=== PATIENT | female | born 1955 | race Caucasian/White ===

== ENCOUNTER → 2016-11-05 | Outpatient (REF) | payer BC, OTHER | LOC: M LABNEURO 16:46 | PROVIDERS: ATTEND Psychiatry & Neurology Neurology | DX: R53.83 Other fatigue (principal) ==

== ENCOUNTER → 2017-02-04 | Outpatient (REF) ==
[2017-02-04 06:56] LABS: MEAN CORPUSCULAR HEMOGLOBIN 30.1 pg (27.0-33.0); MEAN CORPUSCULAR HGB CONC 33.4 g/dl (32.0-36.5); PLATELET COUNT, AUTOMATED 272 10^3/uL (150-450); RED CELL DISTRIBUTION WIDTH 11.7 % (11.5-14.5); WHITE BLOOD COUNT 5.3 10^3/uL (4.0-10.0)
[2017-02-04 07:15] LABS: ANION GAP 5 MEQ/L (8-16); BLOOD UREA NITROGEN 20 MG/DL (7-18); CARBON DIOXIDE LEVEL 31 MEQ/L (21-32); CHLORIDE LEVEL 107 MEQ/L (98-107); CHOLESTEROL LEVEL 186 MG/DL (<200); CREATININE FOR GFR 0.75 MG/DL (0.55-1.02); GLOMERULAR FILTRATION RATE > 60.0 (>45); GLUCOSE, FASTING 96 MG/DL (80-110); POTASSIUM SERUM 4.1 MEQ/L (3.5-5.1); SODIUM LEVEL 143 MEQ/L (136-145); TRIGLYCERIDES LEVEL 95 MG/DL (<150)
--- NOTE | 2017-02-04 08:42 | ECGEPIP ---
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 Similar to 12/30/13. Electronically Signed On 02-04-2017 8:42:17 EST by Chadd Montalvo
== END ==
LOC: M LAB 06:15
PROVIDERS: ATTEND Family Medicine
DX: Z02.89 Encounter for other administrative examinations (principal)

== ENCOUNTER → 2017-02-19 | Outpatient (CLI) | payer BC ==
--- NOTE | 2017-02-22 20:45 | HOLTMON ---
[facility] Test Date: 2017-02-19 Pat Name: EMMANUELLE OLIVER Department: Room: - Gender: Female Clinical Assoc: VIELKA MENDO[facility] : 1955 Requested By: JAIMIE JONES Order Number: [id number] Reading MD: Moshe Tinajero Interpretive Statements Patient had 47.5 hour holter monitor, with minimal artifact. Underlying rhythm was sinus. Minimum heart rate was 58 bpm, maximum was 159 bpm. There were no significant pauses. There were 6 ventricular singlet beats, and 28 supraventricular singlet beats recorded, with no runs. Diary events were not associated with arrhythmia. There was no diary event associated with her maximum heart rate. The cause for her palpitations is not identified by this study. An event recorder can be considered for longer term monitoring if palpitations are not frequent. An implantable loop recorder could also be considered depending on clinical scenario. Thank-you for this referral. Electronically Signed On 02-22-2017 20:44:52 EST by Moshe Tinajero
== END ==
LOC: M EKG 06:23
PROVIDERS: ATTEND Family Medicine
DX: R00.2 Palpitations (principal)

== ENCOUNTER → 2017-05-29 | Outpatient (CLI) | payer OTHER ==
[2017-05-29 10:48] LABS: TOTAL 25(OH) VITAMIN D 43.8 NG/ML (30.0-100.0)
== END ==
LOC: M LAB 09:12
DX: Z13.21 Encounter for screening for nutritional disorder (principal)
CPT/HCPCS: 82306

== ENCOUNTER → 2020-05-01 | Outpatient (CLI) | payer SELFPAY | LOC: M LABSMTC 11:34 | PROVIDERS: ATTEND Pediatrics | DX: Z11.52 Encounter for screening for COVID-19 (principal) ==

== ENCOUNTER → 2021-04-25 | Outpatient (CLI) | payer MEDICARE | LOC: M PLAIMG 10:01 | PROVIDERS: ATTEND Family Medicine | DX: M67.441 Ganglion, right hand (principal) ==

== ENCOUNTER → 2021-08-23 | Outpatient (CLI) | payer MEDICARE | LOC: M PLALAB 09:47 | PROVIDERS: ATTEND Family Medicine | DX: M75.31 Calcific tendinitis of right shoulder (principal); M25.552 Pain in left hip; M25.551 Pain in right hip ==

== ENCOUNTER → 2021-08-24 | Outpatient (CLI) | payer MEDICARE | LOC: M PLAIMG 09:30 | PROVIDERS: ATTEND Family Medicine | DX: M25.552 Pain in left hip (principal); M25.512 Pain in left shoulder; M25.551 Pain in right hip ==

== ENCOUNTER → 2023-05-27 | Outpatient (CLI) | payer MEDICARE | LOC: M PLAIMG 09:05 | PROVIDERS: ATTEND Family Medicine | DX: M54.2 Cervicalgia (principal); M79.672 Pain in left foot ==

== ENCOUNTER 2023-07-15 16:48 | Emergency (ER) | payer MEDICARE ==
[~2023-07-15] VITALS: Ht 167.6 cm; Wt 65.2 kg
[2023-07-15 16:49] VITALS: TEMP 98.7
[2023-07-15] MEDS: IBUPROFEN 600MG TAB PO ONE (20:30)
[2023-07-15 21:03] VITALS: BP 147/72; O2SAT 97
== END 2023-07-15 21:05 | disposition home or self-care (01) ==
LOC: M ED 16:48
DX: S92.351A Displaced fracture of fifth metatarsal bone, right foot, initial encounter for closed fracture (principal); S92.514A Nondisplaced fracture of proximal phalanx of right lesser toe(s), initial encounter for closed fracture; S52.122A Displaced fracture of head of left radius, initial encounter for closed fracture; W10.8XXA Fall (on) (from) other stairs and steps, initial encounter; Y92.009 Unspecified place in unspecified non-institutional (private) residence as the place of occurrence of the external cause; Y93.89 Activity, other specified; Y99.9 Unspecified external cause status; Z88.1 Allergy status to other antibiotic agents

== ENCOUNTER → 2023-07-30 | Outpatient (CLI) | payer MEDICARE | LOC: M PLAIMG 09:00 | PROVIDERS: ATTEND Orthopaedic Surgery | DX: S52.135A Nondisplaced fracture of neck of left radius, initial encounter for closed fracture (principal); Y93.9 Activity, unspecified; Y92.9 Unspecified place or not applicable ==

== ENCOUNTER → 2023-08-14 | Outpatient (CLI) | payer MEDICARE | LOC: M SOG 08:02 | PROVIDERS: ATTEND Physician Assistant | DX: S52.552D Other extraarticular fracture of lower end of left radius, subsequent encounter for closed fracture with routine healing (principal) ==

== ENCOUNTER → 2023-08-28 | Outpatient (CLI) | payer MEDICARE | LOC: M SOG 07:52 | PROVIDERS: ATTEND Physician Assistant | DX: S52.552D Other extraarticular fracture of lower end of left radius, subsequent encounter for closed fracture with routine healing (principal) ==

== ENCOUNTER → 2023-09-25 | Outpatient (CLI) | payer MEDICARE | LOC: M WHC 10:17 | PROVIDERS: ATTEND Family Medicine | DX: Z13.820 Encounter for screening for osteoporosis (principal); S52.552D Other extraarticular fracture of lower end of left radius, subsequent encounter for closed fracture with routine healing; M85.851 Other specified disorders of bone density and structure, right thigh; M85.852 Other specified disorders of bone density and structure, left thigh ==

== ENCOUNTER → 2023-09-30 | Outpatient (CLI) | payer MEDICARE | LOC: M SOG 08:06 | PROVIDERS: ATTEND Physician Assistant | DX: M25.632 Stiffness of left wrist, not elsewhere classified (principal) ==

== ENCOUNTER → 2024-11-30 | Outpatient (CLI) | payer MEDICARE | LOC: M PLAIMG 09:52 | PROVIDERS: ATTEND Family Medicine | DX: M54.16 Radiculopathy, lumbar region (principal) ==

== ENCOUNTER → 2024-12-31 | Outpatient (CLI) | payer MEDICARE | LOC: M PLARAD 08:14 | PROVIDERS: ATTEND Family Medicine | DX: M51.16 Intervertebral disc disorders with radiculopathy, lumbar region (principal); S32.000A Wedge compression fracture of unspecified lumbar vertebra, initial encounter for closed fracture; W18.30XA Fall on same level, unspecified, initial encounter; Y92.009 Unspecified place in unspecified non-institutional (private) residence as the place of occurrence of the external cause ==

== ENCOUNTER → 2025-01-21 | Outpatient (CLI) | payer MEDICARE | LOC: M PLAIMG 10:40 | PROVIDERS: ATTEND Family Medicine | DX: M79.672 Pain in left foot (principal) ==